=== PATIENT | female | born 1940 ===

== ENCOUNTER 2017-02-21 04:17 | Emergency (ER) | payer MEDICARE, MEDICAID ==
[2017-02-21 04:34] VITALS: RESP 16; O2SAT 99
--- NOTE | 2017-02-21 04:43 | ED PDOC ---
HPI: Psych/Substance Abuse Time Seen by Provider: 02/21/17 04:20 Chief Complaint (Nursing): Anxiety Chief Complaint (Provider): Insomnia History Per: Patient History/Exam Limitations: no limitations Suicide/Self Injury Attempted (Context): None Additional Complaint(s): 76 year old female brought in by family presents to ED with complaints of insomnia and has a past medical history of anxiety and gastritis. Family notes that patient has not been sleeping x3 days due to anxiety. Confirms patient currently takes Lexapro BID. Family also notes patient experiences occasional epigastric pain. Patient denies pain currently. (-) suicidal/homicidal ideation. PCP: Selvin Past Medical History Reviewed: Historical Data, Nursing Documentation, Vital Signs Vital Signs: Last Vital Signs Temp 98.4 F 02/21/17 04:30 Pulse 81 02/21/17 04:30 Resp 16 02/21/17 04:30 BP 147/93 H 02/21/17 04:30 Pulse Ox 99 02/21/17 04:30 - Medical History PMH: Anxiety, Gastritis Denies: No Chronic Diseases - Family History Family History: States: No Known Family Hx - Living Arrangements Living Arrangements: With Family - Home Medications Home Medications: Ambulatory Orders Medication Instructions Recorded Lorazepam [Ativan] 1 mg PO DAILY PRN #12 tablet 02/21/17 - Allergies Allergies/Adverse Reactions: Allergies Allergy/AdvReac Type Severity Reaction Status Date / Time No Known Allergies Allergy Verified 02/21/17 04:30 Review of Systems ROS Statement: Except As Marked, All Systems Reviewed And Found Negative Gastrointestinal: Positive for: Abdominal Pain (epigastric pain) Psych: Positive for: Anxiety, Other ((-) homicidal ideation, (+) insomnia). Negative for: Suicidal ideation Physical Exam - Reviewed Nursing Documentation Reviewed: Yes Vital Signs Reviewed: Yes - Physical Exam Appears: Positive for: Non-toxic, No Acute Distress (anxious appearing) Skin: Positive for: Normal Color, Warm, Dry Eye Exam: Positive for: Normal appearance Neck: Positive for: Normal Respiratory: Positive for: Normal Breath Sounds. Negative for: Respiratory Distress Gastrointestinal/Abdominal: Positive for: Soft. Negative for: Tenderness Back: Positive for: Normal Inspection Neurologic/Psych: Positive for: Alert, Oriented. Negative for: Motor/Sensory Deficits - Laboratory Results Result Diagrams: 02/21/17 05:35 02/21/17 05:35 - ECG O2 Sat by Pulse Oximetry: 99 (RA) Pulse Ox Interpretation: Normal Medical Decision Making Medical Decision Makin Initial impression: anxiety, insomnia Initial plan: * Labs * Lipase * Crisis evaluation * Ativan 2mg PO * Re-evaluation 519 Patient was evaluated by crisis as per Dr. Jaramillo. Diagnosis: anxiety 0642 Patient states she is feeling better and is able to sleep. Labs reviewed: potassium level is slightly low. Advised patient to consume more potassium. Patient is stable for discharge home. Scribe Attestation: Documented by Marilee Li acting as a scribe for Robby Archuleta MD. Scribe Attestation: All medical record entries made by the Scribe were at my direction and personally dictated by me. I have reviewed the chart and agree that the record accurately reflects my personal performance of the history, physical exam, medical decision making, and the department course for this patient. I have also personally directed, reviewed, and agree with the discharge instructions and disposition. Disposition - Clinical Impression Clinical Impression: Anxiety - Patient ED Disposition Is Patient to be Admitted: No - Disposition Referrals: Aj Montalvo MD [Primary Care Provider] - Disposition: Routine/Home Disposition Time: 06:45 Condition: IMPROVED Additional Instructions: Please see your primary doctor and ask if sleeping/anxiety medications are appropriate for you (i.e. ativan, lunesta, ambien). Prescriptions: Lorazepam [Ativan] 1 mg PO DAILY PRN #12 tablet PRN Reason: Anxiety Instructions: Insomnia (ED), Anxiety (ED) Forms: [employer] (Indonesian) Print Language: MONEGASQUE
[2017-02-21 05:40] LABS: BASO % 0.4 % (0.0-2.0); EOS # 0.1 K/uL (0.0-0.7); EOS % 0.9 % (0.0-4.0); HEMATOCRIT 38.2 % (34.0-47.0); LYMPH # 1.3 K/uL (1.0-4.3); LYMPH % 21.6 % (20.0-40.0); MEAN CORPUSCULAR HEMOGLOBIN 29.6 pg (27.0-31.0); MEAN CORPUSCULAR HGB CONC 32.9 g/dL (33.0-37.0); MEAN PLATELET VOLUME 10.1 fl (7.2-11.7); MONO # 0.4 K/uL (0.0-0.8); MONO % 7.6 % (0.0-10.0); NEUT # 4.1 K/uL (1.8-7.0); NEUT % 69.5 % (50.0-75.0); WHITE BLOOD COUNT 5.9 K/uL (4.8-10.8)
[2017-02-21 06:04] LABS: BLOOD UREA NITROGEN 6 mg/dl (7-17); CALCIUM 9.3 mg/dL (8.4-10.2); CARBON DIOXIDE 25 mmol/L (22-30); CHLORIDE 105 mmol/L (98-107); GFR AFRICAN-AMERICAN > 60; GLUCOSE,RANDOM 115 mg/dL (65-105); LIPASE 169 U/L (23-300); POTASSIUM 3.3 MMOL/L (3.6-5.0); SODIUM 140 mmol/l (132-148)
[2017-02-21 09:30] VITALS: BP 139/82; PULSE 76; TEMP 98.1
== END 2017-02-21 09:30 | disposition home or self-care (01) ==
LOC: H.ER 04:17
DX: F41.9 Anxiety disorder, unspecified (principal); G47.00 Insomnia, unspecified

== ENCOUNTER 2017-05-12 01:28 | Observation (INO) | payer MEDICARE, MEDICAID ==
[2017-05-12 02:43] LABS: BASO % 0.6 % (0.0-2.0); EOS # 0.1 K/uL (0.0-0.7); HEMOGLOBIN 11.9 g/dL (12.0-16.0); LYMPH # 1.2 K/uL (1.0-4.3); LYMPH % 20.3 % (20.0-40.0); MEAN CELL VOLUME 91.7 fl (81.0-99.0); MEAN CORPUSCULAR HEMOGLOBIN 29.5 pg (27.0-31.0); MEAN CORPUSCULAR HGB CONC 32.2 g/dL (33.0-37.0); MEAN PLATELET VOLUME 9.2 fl (7.2-11.7); MONO # 0.5 K/uL (0.0-0.8); MONO % 7.8 % (0.0-10.0); NEUT # 4.2 K/uL (1.8-7.0); NEUT % 70.3 % (50.0-75.0); NRBC % 0.1 % (0.0-0.0); RBC 4.04 Mil/uL (3.80-5.20); RED CELL DISTRIBUTION WIDTH 14.1 % (11.5-14.5)
--- NOTE | 2017-05-12 02:50 | ED PDOC ---
HPI: Seizure Time Seen by Provider: 05/12/17 01:37 Chief Complaint (Nursing): Trauma Chief Complaint (Provider): Seizure-Like Activity History Per: Patient, Family Recent Seizure Activity Began: Hours Ago: (x1) Number Of Seizures: One Length Of Seizures (Duration): Minutes (less than 2 minutes) Quality Of Seizure: Generalized Precipitating Factor(s): None Associated Symptoms: denies: Incontinence Of Urine, Incontinence Of Stool Post-ictal Period: Duration In Mins: (x10) Additional Complaint(s): 76 year old female brought in by EMS and accompanied by family presents to ED due to seizure-like activity [employer] and has a past medical history of dementia and anxiety. Family states patient was in good spirits today but heard a thump her room x1 hour [employer]. Daughter states she found the patient on the floor facing up. Notes that patient was tensed and her upper extremities were shaking. Further reports patient was "staring off into space" and sticking out her tongue. Confirms episodes lasted less than 2 minutes. (-) incontinence of stool or urine. Family notes post-ictal period of 10 minutes where patient was confused and unable to recognize family members. Upon ED arrival patient noted feeling better and denies the event happened. Patient believes she has been sleeping all night. PCP: ANTONETTE NIHSS Stroke Scale - Date/Time Evaluation Performed Date Performed: 05/12/17 Time Performed: 01:40 When Was NIHSS Performed: Baseline - How Severe is the Stroke Level of Consciousness: 0=Alert LOC to Questions: 0=Both comments correct LOC to commands: 0=Obeys both correctly Best Gaze: 0=Normal Visual: 0=No visual loss Facial: 0=Normal Motor Arm - Left: 0=No drift Motor Arm - Right: 0=No drift Motor Leg - Left: 0=No drift Motor Leg - Right: 0=No drift Limb Ataxia: 0=Absent Sensory: 0=Normal Best Language: 0=No aphasia Dysarthia: 0=Normal articulation Extinction & Inattention (Neglect): 0=Normal, no object Score: 0 Past Medical History Reviewed: Historical Data, Nursing Documentation, Vital Signs Vital Signs: Last Vital Signs Temp 97.9 F 05/12/17 01:57 Pulse 75 05/12/17 01:42 Resp 16 05/12/17 01:42 BP 139/71 05/12/17 01:42 Pulse Ox 99 05/12/17 03:12 - Medical History PMH: Anxiety, Dementia, Gastritis Denies: Diabetes, Hepatitis, HIV, HTN, Seizures, Sexually Transmitted Disease - Family History Family History: States: No Known Family Hx - Living Arrangements Living Arrangements: With Family - Social History Drugs: Denies - Home Medications Home Medications: Ambulatory Orders Medication Instructions Recorded Memantine [Namenda] 5 mg PO BID 05/12/17 Mirtazapine [Remeron ODT] 15 mg PO HS 05/12/17 Ondansetron HCl [Zofran] 4 mg PO Q6 PRN 05/12/17 Pantoprazole Sodium [Protonix] 40 mg PO DAILY 05/12/17 Saccharomyces Boulardi [Florastor] 250 mg PO DAILY 05/12/17 traZODone [Desyrel] 50 mg PO HS 05/12/17 - Allergies Allergies/Adverse Reactions: Allergies Allergy/AdvReac Type Severity Reaction Status Date / Time No Known Allergies Allergy Verified 05/12/17 01:41 Review of Systems ROS Statement: Except As Marked, All Systems Reviewed And Found Negative Genitourinary Female: Negative for: Incontinence Neurological: Positive for: Other (Seizure-like activity) Physical Exam - Reviewed Nursing Documentation Reviewed: Yes Vital Signs Reviewed: Yes - Physical Exam Appears: Positive for: Non-toxic, No Acute Distress Skin: Positive for: Normal Color, Warm, Dry Eye Exam: Positive for: Normal appearance, EOMI, PERRL ENT: Positive for: Normal ENT Inspection Neck: Positive for: Normal, Painless ROM, Supple Cardiovascular/Chest: Positive for: Regular Rate, Rhythm. Negative for: Murmur Respiratory: Positive for: Normal Breath Sounds. Negative for: Respiratory Distress Gastrointestinal/Abdominal: Positive for: Soft. Negative for: Tenderness Extremity: Positive for: Normal ROM Neurologic/Psych: Positive for: Alert, supervisor functional testing II-XII (intact), Oriented, Cerebellar Tests (intact). Negative for: Motor/Sensory Deficits, Facial Droop - Laboratory Results Result Diagrams: 05/12/17 02:38 05/12/17 02:38 - ECG O2 Sat by Pulse Oximetry: 99 (RA) Pulse Ox Interpretation: Normal Medical Decision Making Medical Decision Makin Initial impression: first time seizure v syncope with seizure-like episode Initial plan: * CT CERVICAL SPINE * CT HEAD * EKG * EtOH serum * Labs * CPK * Lact Acid * Magnesium * CXR * UA 0256 CT HEAD FINDINGS BRAIN: Diffuse, age-related cortical atrophy and ventriculomegaly. No significant acute abnormality identified. No acute hemorrhage seen within the brain. No acute extra-axial fluid collections visualized. No evidence of significant mass effect within the brain. VENTRICLES: See above. BONES/JOINTS: No acute fractures or other acute bony abnormality noted. SOFT TISSUES: No acute abnormality of the visualized soft tissues is seen. SINUSES: Visualized paranasal sinuses appear clear. MASTOID AIR CELLS: Mastoid air cells appear clear. IMPRESSION: - No acute findings seen within the brain. - See above for remaining findings. 3AM No previous seizure-like activity according to family. Will admit for first time seizure v. syncope with tonic clonic features. Scribe Attestation: Documented by Marilee Li acting as a scribe for Robby Archuleta MD. Scribe Attestation: All medical record entries made by the Scribe were at my direction and personally dictated by me. I have reviewed the chart and agree that the record accurately reflects my personal performance of the history, physical exam, medical decision making, and the department course for this patient. I have also personally directed, reviewed, and agree with the discharge instructions and disposition. Disposition - Clinical Impression Clinical Impression: Seizure - Disposition Referrals: Aj Montalvo MD [Primary Care Provider] - Disposition Time: 02:00 Condition: IMPROVED Forms: [employer] (Khmer)
--- NOTE | 2017-05-12 02:56 | CT ---
EXAM: CT Head Without Intravenous Contrast EXAM DATE/TIME: 05/12/2017 2:01 AM CLINICAL HISTORY: 76 years old, female; Signs and symptoms; Other: Seizure; Additional info: 1st time seizure TECHNIQUE: Axial computed tomography images of the head/brain without intravenous contrast. All CT scans at this facility use one or more dose reduction techniques, viz.: automated exposure control; ma/kV adjustment per patient size (including targeted exams where dose is matched to indication; i.e. head); or iterative reconstruction technique. Coronal and sagittal reformatted images were created and reviewed. COMPARISON: No relevant prior studies available. FINDINGS: BRAIN: Diffuse, age-related cortical atrophy and ventriculomegaly. No significant acute abnormality identified. No acute hemorrhage seen within the brain. No acute extra-axial fluid collections visualized. No evidence of significant mass effect within the brain. VENTRICLES: See above. BONES/JOINTS: No acute fractures or other acute bony abnormality noted. SOFT TISSUES: No acute abnormality of the visualized soft tissues is seen. SINUSES: Visualized paranasal sinuses appear clear. MASTOID AIR CELLS: Mastoid air cells appear clear. IMPRESSION: - No acute findings seen within the brain. - See above for remaining findings.
[2017-05-12 03:03] LABS: ALB/GLOB RATIO 1.4 (1.0-2.1); ALBUMIN 4.2 g/dL (3.5-5.0); ALT/SGPT 34 U/L (9-52); AST/SGOT 30 U/L (14-36); BLOOD UREA NITROGEN 11 mg/dl (7-17); CALCIUM 9.2 mg/dL (8.4-10.2); GFR AFRICAN-AMERICAN > 60; GFR NON-AFRICAN AMERICAN > 60; MAGNESIUM 2.4 MG/DL (1.6-2.3)
--- NOTE | 2017-05-12 03:12 | CT ---
EXAM: CT Cervical Spine Without Intravenous Contrast EXAM DATE/TIME: 05/12/2017 2:02 AM CLINICAL HISTORY: 76 years old, female; Injury or trauma; Fall; Initial encounter; Blunt trauma; Additional info: Fall, seizure TECHNIQUE: Axial computed tomography images of the cervical spine without intravenous contrast. All CT scans at this facility use one or more dose reduction techniques, viz.: automated exposure control; ma/kV adjustment per patient size (including targeted exams where dose is matched to indication; i.e. head); or iterative reconstruction technique. Coronal and sagittal reformatted images were created and reviewed. COMPARISON: No relevant prior studies available. FINDINGS: VERTEBRAE: Vertebrae appear demineralized. 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 No acute cervical spine fractures visualized. No significant vertebral subluxation seen on the sagittal reformatted images. No evidence of acute facet dislocation. DISCS/SPINAL CANAL/NEURAL FORAMINA: Smooth widening of the neural foramina at C4-5 bilaterally, greater on the left. No associated lytic bony destruction. Moderate multilevel facet joint degenerative changes. Mild, multilevel degenerative disc disease. SOFT TISSUES: No acute abnormality of the visualized soft tissues is seen. LUNG APICES: No pneumothorax seen. IMPRESSION: - No acute cervical spine fractures identified. - Smooth widening of the neural foramina at C4-5 bilaterally, greater on the left. No lytic bony destruction. Findings are of uncertain etiology, but could be secondary to nerve sheath tumors, such as schwannomas or neurofibromas, perineural root sleeve cysts, and dural ectasia. MRI of the lumbar spine would be helpful for further evaluation. - See above for remaining findings.
[2017-05-12 03:14] LABS: SQUAMOUS EPITHIAL < 1 /hpf (0-5); URINE BACTERIA RARE (<OCC); URINE BILIRUBIN NEGATIVE (NEGATIVE); URINE BLOOD SMALL (NEGATIVE); URINE CLARITY SLIGHTY-CLOUDY (Clear); URINE COLOR YELLOW (YELLOW); URINE GLUCOSE (UA) NEG (Normal); URINE LEUKOCYTE ESTERASE NEG Leu/uL (Negative); URINE NITRATE NEGATIVE (NEGATIVE); URINE PROTEIN NEGATIVE (NEGATIVE); URINE UROBILINOGEN 0.2-1.0 mg/dL (0.2-1.0)
[2017-05-12] MEDS ORDERED: Divalproex 250 mg DR(BID formulation) PO STA (06:38)
[2017-05-12] MEDS ORDERED: Divalproex 250 mg DR(BID formulation) PO SCH (09:00)
--- NOTE | 2017-05-12 10:40 | MRI ---
PROCEDURE: MRI BRAIN WITHOUT CONTRAST HISTORY: 1st time seizure COMPARISON: None. TECHNIQUE: Multiplanar, multisequence MR images of the brain were obtained without intravenous contrast enhancement. FINDINGS: HEMORRHAGE: None DWI: No evidence of an acute or early subacute infarction. BRAIN PARENCHYMA: No mass effect or edema. Moderate microvascular changes are seen in the deep white matter. Coronal imaging through the temporal lobes shows mild to moderate bilateral atrophy but no focal signal abnormality VENTRICLES: Unremarkable. No hydrocephalus. CRANIUM: Unremarkable. ORBITS: Grossly unremarkable. PARANASAL SINUSES/MASTOIDS: Clear VASCULAR SYSTEM: Skull base flow voids intact. OTHER FINDINGS: None. IMPRESSION: Moderate microvascular changes. Mild atrophy. No acute intracranial findings. No evidence of neoplasm
--- NOTE | 2017-05-12 12:06 | RAD ---
PROCEDURE: CHEST RADIOGRAPH, 1 VIEW HISTORY: 1st time seizure COMPARISON: No prior. FINDINGS: LUNGS: Clear. PLEURA: No pneumothorax or pleural fluid seen. CARDIOVASCULAR: Aortic tortuosity. Cardiomediastinal silhouette within normal limits. OSSEOUS STRUCTURES: Scoliosis. Degenerative changes. VISUALIZED UPPER ABDOMEN: Normal. OTHER FINDINGS: None. IMPRESSION: No active disease.
--- NOTE | 2017-05-12 12:11 | CP.PCM.CON ---
History of Present Illness - History of Present Illness History of Present Illness: 76 yr old woman who was found by daughter on the ground last night, s/p fall. There was no urinary or fecal incontinence, no tongue bite. CT head was normal is the ER, and her vital signs have been stable. She was started on depakote as a preliminary treatment. EEG is pending. On my exam, patient is fluent in indian, and conversing appropriately. She is, however, extremely anxious. There is no headache, no weakness, no aphasia, no dysarthria, no dizziness, no confusion. PMH/PSH: NO dm, no history of epilepsy FH/SH: Has several children. no tobacco, no etoh. All: nkda. Findings: MRI C spine: Vertebrae appear demineralized. 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 No acute cervical spine fractures visualized. No significant vertebral subluxation seen on the sagittal reformatted images. No evidence of acute facet dislocation. DISCS/SPINAL CANAL/NEURAL FORAMINA: Smooth widening of the neural foramina at C4 -5 bilaterally, greater on the left. No associated lytic bony destruction. Moderate multilevel facet joint degenerative changes. Mild, multilevel degenerative disc disease. SOFT TISSUES: No acute abnormality of the visualized soft tissues is seen. LUNG APICES: No pneumothorax seen. On exam: AAOX3. Pupils 3mm-2mm with light. EOMI. CN 2-12 normal. Motor: strength : 5/5 ul and ll bl. Toes downgoing. NO clonus. Sensory: intact to ft, pin, position. Gait: normal, turns well. THere is no indication for Parkinsons Disease. +2dtr ul and ll bl. Toes downgoing. NO clonus. NO rhomberg. Past Patient History - Past Social History Smoking Status: Unknown If Ever Smoked - CARDIAC Hx Cardiac Disorders: No - PULMONARY Hx Tuberculosis: No - NEUROLOGICAL Hx Dementia: Yes Hx Seizures: No - HEMATOLOGICAL/ONCOLOGICAL Hx Human Immunodeficiency Virus (HIV): No - GASTROINTESTINAL Hx Gastritis: Yes - GENITOURINARY/GYNECOLOGICAL Hx Sexually Transmitted Disorders: No - PSYCHIATRIC Hx Anxiety: Yes Hx Substance Use: No Other/Comment: dementia - SURGICAL HISTORY Hx Surgeries: No - ANESTHESIA Hx Anesthesia: No Meds Allergies/Adverse Reactions: Allergies Allergy/AdvReac Type Severity Reaction Status Date / Time No Known Allergies Allergy Verified 05/12/17 01:41 - Medications Medications: Current Medications Divalproex Sodium (Depakote Dr(*Bid*)) 250 mg PO BID [facility] Last Admin: 05/12/17 08:33 Dose: 250 mg Memantine (Namenda) 5 mg PO BID [facility] Ondansetron HCl (Zofran Inj) 4 mg IVP Q6 PRN PRN Reason: Nausea/Vomiting Results - Vital Signs Recent Vital Signs: Last Vital Signs Temp 98.0 F 05/12/17 03:42 Pulse 80 05/12/17 10:53 Resp 20 05/12/17 10:53 BP 133/62 05/12/17 10:53 Pulse Ox 100 05/12/17 10:53 - Labs Result Diagrams: 05/12/17 02:38 05/12/17 02:38 Labs: Laboratory Results - last 24 hr 05/12/17 05/12/17 05/12/17 01:55 02:38 02:38 WBC 6.0 RBC 4.04 Hgb 11.9 L Hct 37.0 MCV 91.7 MCH 29.5 MCHC 32.2 L RDW 14.1 Plt Count 199 MPV 9.2 Neut % (Auto) 70.3 Lymph % (Auto) 20.3 Bertie % (Auto) 7.8 Eos % (Auto) 1.0 Baso % (Auto) 0.6 Neut # (Auto) 4.2 Lymph # (Auto) 1.2 Bertie # (Auto) 0.5 Eos # (Auto) 0.1 Baso # (Auto) 0.0 Sodium 141 Potassium 4.1 Chloride 103 Carbon Dioxide 28 Anion Gap 14 BUN 11 Creatinine 0.8 Est GFR ( Amer) > 60 Est GFR (Non-Af Amer) > 60 POC Glucose (mg/dL) 108 Random Glucose 120 H Lactic Acid Calcium 9.2 Magnesium 2.4 H Total Bilirubin 0.8 AST 30 ALT 34 Alkaline Phosphatase 83 Total Creatine Kinase 175 H Total Protein 7.2 Albumin 4.2 Globulin 3.0 Albumin/Globulin Ratio 1.4 Urine Color Urine Clarity Urine pH Ur Specific [place]xton Urine Protein Urine Glucose (UA) Urine Ketones Urine Blood Urine Nitrate Urine Bilirubin Urine Urobilinogen Ur Leukocyte Esterase Urine RBC (Auto) Urine Microscopic WBC Ur Squamous Epith Cells Urine Bacteria Alcohol, Quantitative < 10 05/12/17 05/12/17 02:38 03:05 WBC RBC Hgb Hct MCV MCH MCHC RDW Plt Count MPV Neut % (Auto) Lymph % (Auto) Bertie % (Auto) Eos % (Auto) Baso % (Auto) Neut # (Auto) Lymph # (Auto) Bertie # (Auto) Eos # (Auto) Baso # (Auto) Sodium Potassium Chloride Carbon Dioxide Anion Gap BUN Creatinine Est GFR ( Amer) Est GFR (Non-Af Amer) POC Glucose (mg/dL) Random Glucose Lactic Acid 1.4 Calcium Magnesium Total Bilirubin AST ALT Alkaline Phosphatase Total Creatine Kinase Total Protein Albumin Globulin Albumin/Globulin Ratio Urine Color Yellow Urine Clarity Slighty-cloudy Urine pH 6.0 Ur Specific [place] 1.016 Urine Protein Negative Urine Glucose (UA) Neg Urine Ketones Negative Urine Blood Small Urine Nitrate Negative Urine Bilirubin Negative Urine Urobilinogen 0.2-1.0 Ur Leukocyte Esterase Neg Urine RBC (Auto) 5 H Urine Microscopic WBC 2 Ur Squamous Epith Cells < 1 Urine Bacteria Rare Alcohol, Quantitative - Imaging and Cardiology CT scan - head Status: Image reviewed by me, Report reviewed by me (CT head normal. NO strokes no hemorrhage. ) Assessment & Plan - Assessment and Plan (Free Text) Assessment: 76 yr old woman who most likely had a syncopal spell. I will discontinue the depakote, and order EEG. MRI brain is pending, but can be done on an outpatient basis. Plan: 1. EEG 2. MRI Brain.
--- NOTE | 2017-05-12 12:26 | CARD ---
APPROVED REPORT EKG Measurement Heart [id number] <Conclusion> Normal sinus rhythm Nonspecific T wave abnormality Abnormal ECG
[2017-05-12] MEDS: Saccharomyces Boulardi 250 mg Cap PO SCH (14:00)
[2017-05-12] MEDS: Pantoprazole 40 mg EC Tab PO SCH (14:00)
--- NOTE | 2017-05-12 17:26 | CP.PCM.CON ---
History of Present Illness - History of Present Illness History of Present Illness: 76 y/o active female who had syncopal episode overnight which was witnessed by family. pt does not remember waking from sleep. Apparently she took her sleeping pills and went to bed at 11pm. 1230am she stood up out of bed and had syncope. no urine incontinence, no tremors, no head trauma. this is the first episode. pt was mildly lethargic after episode however she recovered in 10-15 min. pt admits to feeling thirsty over past 2 weeks. note she was recently (2 weeks ago) changed to mirtazipine and trazadone. she was taking lorazepam 1mg and escitalopram 10 mg for 2 years. pt denies cp, palp, sob, orthopnea, pnd, maranda, lightheadedness, dizziness, fatigue, blurry vision. Review of Systems - Constitutional Constitutional: As Per HPI. absent: Anorexia, Chills, Daytime Sleepiness, Excessive Sweating, Fatigue, Fever, Frequent Falls, Headache, Increased Appetite , Lethargy, Malaise, Night Sweats, Snoring, Sleep Apnea, Weight Gain, Weight Loss, Weakness, Other - EENT Eyes: As Per HPI. absent: Blind Spots, Blurred Vision, Change in Vision, Decreased Night Vision, Diplopia, Discharge, Dry Eye, Exophthalmos, Floaters, Irritation, Itchy Eyes, Loss of Peripheral Vision, Pain, Photophobia, Requires Corrective Lenses, Sees Flashes, Spots in Vision, Tunnel Vision, Other Visual Disturbances, Loss of Vision, Other Ears: As Per HPI. absent: Decreased Hearing, Ear Discharge, Ear Pain, Tinnitus , Abnormal Hearing, Disequilibrium, Dizziness, Other Nose/Mouth/Throat: As Per HPI, Dry Mouth. absent: Epistaxis, Nasal Congestion, Nasal Discharge, Nasal Obstruction, Nasal Trauma, Nose Pain, Post Nasal Drip, Sinus Pain, Sinus Pressure, Bleeding Gums, Change in Voice, Dental Pain, Dysphagia, Halitosis, Hoarsness, Lip Swelling, Mouth Lesions, Mouth Pain, Odynophagia, Sore Throat, Throat Swelling, Tongue Swelling, Facial Pain, Neck Pain, Neck Mass, Other - Breasts Breasts: As Per HPI. absent: Change in Shape, Mass, Pain, Nipple Discharge, Nipple Inversion, Skin Changes, Swelling, Other - Cardiovascular Cardiovascular: As Per HPI, Syncope. absent: Acrocyanosis, Chest Pain, Chest Pain at Rest, Chest Pain with Activity, Claudication, Diaphoresis, Dyspnea, Dyspnea on Exertion, Edema, Irregular Heart Rhythm, Pain Radiating to Arm/Neck/ Jaw, Leg Edema, Leg Ulcers, Lightheadedness, Orthopnea, Palpitations, Paroxysmal Nocturnal Dyspnea, Pedal Edema, Radiating Pain, Rapid Heart Rate, Slow Heart Rate, Other - Respiratory Respiratory: As Per HPI. absent: Cough, Dyspnea, Hemoptysis, Dyspnea on Exertion, Wheezing, Snoring, Stridor, Pain on Inspiration, Chest Congestion, Excessive Mucous Production, Change in Mucous Color, Pain with Coughing, Other - Gastrointestinal Gastrointestinal: As Per HPI. absent: Abdominal Pain, Belching, Bloating, Change in Bowel Habits, Change in Stool Character, Coffee Ground Emesis, Constipation, Cramping, Diarrhea, Dyspepsia, Dysphagia, Early Satiety, Excessive Flatus, Fecal Incontinence, Heartburn, Hematemesis, Hematochezia, Loose Stools, Melena, Nausea, Odynophagia, Temesmus, Vomiting, Other - Genitourinary Genitourinary: As Per HPI. absent: Change in Urinary Stream, Difficulty Urinating, Dysuria, Flank Pain, Hematuria, Pyuria, Nocturia, Urinary Incontinence, Urinary Frequency, Urinary Hesitance, Urinary Urgency, Voiding Freq/Small Amts, Freq UTI, Hx Renal/Bladder Calculi, Hx /Renal Surgery, Bladder Distension, Other - Reproductive: Female Reproductive:Female: As Per HPI. absent: Amenorrhea, Amenorrhea/ Control, Currently Menstual, Cycle <21 Days, Cycle >35 Days, Cycle Variable, Menses 1-7 Days, Menses >/= 8 Days, Menses Variable, Cycle > 4 Weeks Between, No Menses for 6 Months, Heavy Menses, Light Menses, Normal Menses, Spotting Between Cycles , S/P Hysterectomy, Menopausal, Post Menopausal, Premenarche, Abnormal Vaginal Bleeding, Dysmenorrhea, Dyspareunia, Genital Lesions, Genital Pruritis, Pelvic Pain, Prolapse Symptoms, Sexual Dysfunction, Vaginal Discharge, Vaginal Dryness , Vaginal Odor, Vaginal Pruritis, Other - Musculoskeletal Musculoskeletal: As Per HPI. absent: Abnormal Gait, Arthralgias, Atrophy, Back Pain, Deformity, Joint Swelling, Limited Range of Motion, Loss of Height, Muscle Cramps, Muscle Weakness, Myalgias, Neck Pain, Numbness, Radiating Pain into Limb, Stiffness, Tingling, Other - Integumentary Integumentary: As Per HPI. absent: Acne, Alopecia, Bleeding Lesions, Change in Hair, Change in Nails, Change in Pigmentation, Changing Lesions, Dry Skin, Erythema, Furuncle, Hirsutism, Lesions, New Lesions, Non-Healing Lesions, Photosensitivity, Pruritus, Rash, Skin Pain, Skin Ulcer, Sores, Striae, Swelling , Unusual Bruising, Wounds, Jaundice, Other - Neurological Neurological: As Per HPI, Syncope. absent: Abnormal Gait, Abnormal Hearing, Abnormal Movements, Abnormal Speech, Behavioral Changes, Burning Sensations, Confusion, Convulsions, Disequilibrium, Dizziness, Numbness, Focal Weakness, Frequent Falls, Headaches, Lack of Coordination, Loss of Vision, Memory Loss, Paresthesias, Radicular Pain, Restless Legs, Sensory Deficit, Tingling, Tremor, Vertigo, Weakness, Other Visual Disturbances, Other - Psychiatric Psychiatric: As Per HPI, Anxiety, Depression. absent: Abnormal Sleep Pattern, Anhedonia, Auditory Hallucinations, Behavioral Changes, Change in Appetite, Change in Libido, Confusion, Difficulty Concentrating, Hallucinations, Homicidal Ideation, Hopelessness, Irritability, Memory Loss, Mood Swings, Panic Attacks, Paranoia, Suicidal Ideation, Visual Hallucinations, Tactile Hallucinations, Other - Endocrine Endocrine: As Per HPI. absent: Change in Body Appearance, Change in Libido, Cold Intolorance, Deepening of Voice, Excessive Sweating, Fatigue, Flushing, Heat Intolorance, Increase in Ring/Shoe/Hat Size, Palpitations, Polydipsia, Polyphagia, Polyuria, Other - Hematologic/Lymphatic Hematologic: As Per HPI. absent: Easy Bleeding, Easy Bruising, Lymphadenopathy , Other Past Patient History - Past Medical History & Family History Past Medical History?: Yes - Past Social History Smoking Status: Never Smoked Chewing Tobacco Use: No Cigar Use: No Alcohol: None Drugs: Denies Home Situation {Lives}: With Family Domestic Violence: Negative - CARDIAC Hx Cardiac Disorders: No - PULMONARY Hx Tuberculosis: No - NEUROLOGICAL Hx Dementia: Yes Hx Seizures: No - RENAL Hx Chronic Kidney Disease: No - ENDOCRINE/METABOLIC Hx Endocrine Disorders: No - HEMATOLOGICAL/ONCOLOGICAL Hx Blood Disorders: No Hx AIDS: No Hx Human Immunodeficiency Virus (HIV): No - INTEGUMENTARY Hx Dermatological Problems: No - MUSCULOSKELETAL/RHEUMATOLOGICAL Hx Musculoskeletal Disorders: No Hx Falls: Yes - GASTROINTESTINAL Hx Gastritis: Yes - GENITOURINARY/GYNECOLOGICAL Hx Genitourinary Disorders: No Hx Sexually Transmitted Disorders: No - PSYCHIATRIC Hx Anxiety: Yes Hx Depression: Yes Hx Substance Use: No Other/Comment: dementia - SURGICAL HISTORY Hx Surgeries: No - ANESTHESIA Hx Anesthesia: No Meds Allergies/Adverse Reactions: Allergies Allergy/AdvReac Type Severity Reaction Status Date / Time No Known Allergies Allergy Verified 05/12/17 01:41 - Medications Medications: Current Medications Memantine (Namenda) 5 mg PO BID [facility] Ondansetron HCl (Zofran Inj) 4 mg IVP Q6 PRN PRN Reason: Nausea/Vomiting Pantoprazole Sodium (Protonix Ec Tab) 40 mg PO DAILY [facility] Last Admin: 05/12/17 14:00 Dose: 40 mg Saccharomyces Boulardii (Florastor) 250 mg PO DAILY [facility] Last Admin: 05/12/17 14:00 Dose: 250 mg Physical Exam - Constitutional Appears: Well, No Acute Distress - Head Exam Head Exam: ATRAUMATIC, NORMAL INSPECTION, NORMOCEPHALIC - Eye Exam Eye Exam: EOMI, Normal appearance, PERRL. absent: Conjunctival injection, Nystagmus, Periorbital swelling, Periorbital tenderness, Scleral icterus Pupil Exam: NORMAL ACCOMODATION, PERRL. absent: Fixed, Irregular, Miosis, Mydriatic, Unequal - ENT Exam ENT Exam: Mucous Membranes Dry. absent: Mucous Membranes Moist, Normal Exam, Normal External Ear Exam, Normal Oropharynx, TM's Normal Bilaterally - Neck Exam Neck exam: Positive for: Normal Inspection. Negative for: Full Rom, Lymphadenopathy, Meningismus, Tenderness, Thyromegaly - Respiratory Exam Respiratory Exam: Clear to Auscultation Bilateral, NORMAL BREATHING PATTERN. absent: Accessory Muscle Use, Chest Wall Tenderness, Decreased Breath Sounds, Prolonged Expiratory Phase, Rales, Rhonchi, Wheezes, Respiratory Distress, Stridor - Cardiovascular Exam Cardiovascular Exam: REGULAR RHYTHM, +S1, +S2, Systolic Murmur. absent: Bradycardia, Tachycardia, Clicks, Diastolic murmur, Gallop, Irregular Rhythm, JVD, RRR, Rubs, +S4 - GI/Abdominal Exam GI & Abdominal Exam: Normal Bowel Sounds, Soft. absent: Bruit, Diminished Bowel Sounds, Distended, Firm, Guarding, Hernia, Hyperactive Bowel Sounds, Hypoactive Bowel Sounds, Mass, Organomegaly, Pulsatile Mass, Rebound, Rigid, Tenderness - Rectal Exam Rectal Exam: Deferred - Extremities Exam Extremities exam: Positive for: pedal edema. Negative for: calf tenderness, full ROM, joint swelling, normal capillary refill, normal inspection, tenderness , pedal pulses present - Back Exam Back exam: NORMAL INSPECTION. absent: CVA tenderness (L), CVA tenderness (R), FULL ROM, muscle spasm, paraspinal tenderness, rash noted, tenderness, vertebral tenderness - Neurological Exam Neurological exam: Alert, CN II-XII Intact, Normal Gait, Oriented x3, Reflexes Normal - Psychiatric Exam Psychiatric exam: Normal Affect, Normal Mood - Skin Skin Exam: Dry, Intact, Normal Color, Warm - Additional Findings Additional findings: laying and standing bp's performed. laying systolic was 158/80, standing was 108/66. Results - Vital Signs Recent Vital Signs: Last Vital Signs Temp 98.3 F 05/12/17 15:49 Pulse 84 05/12/17 15:49 Resp 20 05/12/17 15:49 BP 132/82 05/12/17 15:49 Pulse Ox 98 05/12/17 15:49 - Labs Result Diagrams: 05/12/17 02:38 05/12/17 02:38 Labs: Laboratory Results - last 24 hr 05/12/17 05/12/17 05/12/17 01:55 02:38 02:38 WBC 6.0 RBC 4.04 Hgb 11.9 L Hct 37.0 MCV 91.7 MCH 29.5 MCHC 32.2 L RDW 14.1 Plt Count 199 MPV 9.2 Neut % (Auto) 70.3 Lymph % (Auto) 20.3 [place] % (Auto) 7.8 Eos % (Auto) 1.0 Baso % (Auto) 0.6 Neut # (Auto) 4.2 Lymph # (Auto) 1.2 [place] # (Auto) 0.5 Eos # (Auto) 0.1 Baso # (Auto) 0.0 Sodium 141 Potassium 4.1 Chloride 103 Carbon Dioxide 28 Anion Gap 14 BUN 11 Creatinine 0.8 Est GFR ( Amer) > 60 Est GFR (Non-Af Amer) > 60 POC Glucose (mg/dL) 108 Random Glucose 120 H Lactic Acid Calcium 9.2 Magnesium 2.4 H Total Bilirubin 0.8 AST 30 ALT 34 Alkaline Phosphatase 83 Total Creatine Kinase 175 H Total Protein 7.2 Albumin 4.2 Globulin 3.0 Albumin/Globulin Ratio 1.4 Urine Color Urine Clarity Urine pH Ur Specific [place] Urine Protein Urine Glucose (UA) Urine Ketones Urine Blood Urine Nitrate Urine Bilirubin Urine Urobilinogen Ur Leukocyte Esterase Urine RBC (Auto) Urine Microscopic WBC Ur Squamous Epith Cells Urine Bacteria Alcohol, Quantitative < 10 05/12/17 05/12/17 02:38 03:05 WBC RBC Hgb Hct MCV MCH MCHC RDW Plt Count MPV Neut % (Auto) Lymph % (Auto) [place] % (Auto) Eos % (Auto) Baso % (Auto) Neut # (Auto) Lymph # (Auto) [place] # (Auto) Eos # (Auto) Baso # (Auto) Sodium Potassium Chloride Carbon Dioxide Anion Gap BUN Creatinine Est GFR ( Amer) Est GFR (Non-Af Amer) POC Glucose (mg/dL) Random Glucose Lactic Acid 1.4 Calcium Magnesium Total Bilirubin AST ALT Alkaline Phosphatase Total Creatine Kinase Total Protein Albumin Globulin Albumin/Globulin Ratio Urine Color Yellow Urine Clarity Slighty-cloudy Urine pH 6.0 Ur Specific [place] 1.016 Urine Protein Negative Urine Glucose (UA) Neg Urine Ketones Negative Urine Blood Small Urine Nitrate Negative Urine Bilirubin Negative Urine Urobilinogen 0.2-1.0 Ur Leukocyte Esterase Neg Urine RBC (Auto) 5 H Urine Microscopic WBC 2 Ur Squamous Epith Cells < 1 Urine Bacteria Rare Alcohol, Quantitative - EKG Data EKG Interpreted by: Myself EKG shows normal: Sinus rhythm Rate: Normal Assessment & Plan (1) Syncope due to orthostatic hypotension Status: Acute (2) Anxiety Status: Acute - Assessment and Plan (Free Text) Plan: SUGGEST STOPPING MIRTAZIPINE AND TRAZADONE. NS AT [facility] IN AM MONITOR ON TELE ECHO IMAGES REVIEWED, NO SIGNIFICANT STRUCTURAL ABN. NML EF. NO ARRYTHMIA ON TELE 75 MIN TOTAL CARE TIME
[2017-05-12] MEDS: Sodium Chloride 0.9% 1,000 ML IV SCH (20:35)
--- NOTE | 2017-05-13 00:13 | CP.PCM.HP ---
Past Patient History - Past Medical History & Family History Past Medical History?: Yes - Past Social History Smoking Status: Never Smoked Chewing Tobacco Use: No Cigar Use: No Alcohol: None Drugs: Denies Home Situation {Lives}: With Family Domestic Violence: Negative - CARDIAC Hx Cardiac Disorders: No - PULMONARY Hx Tuberculosis: No - NEUROLOGICAL Hx Dementia: Yes Hx Seizures: No - RENAL Hx Chronic Kidney Disease: No - ENDOCRINE/METABOLIC Hx Endocrine Disorders: No - HEMATOLOGICAL/ONCOLOGICAL Hx Blood Disorders: No Hx AIDS: No Hx Human Immunodeficiency Virus (HIV): No - INTEGUMENTARY Hx Dermatological Problems: No - MUSCULOSKELETAL/RHEUMATOLOGICAL Hx Musculoskeletal Disorders: No Hx Falls: Yes - GASTROINTESTINAL Hx Gastritis: Yes - GENITOURINARY/GYNECOLOGICAL Hx Genitourinary Disorders: No Hx Sexually Transmitted Disorders: No - PSYCHIATRIC Hx Anxiety: Yes Hx Depression: Yes Hx Substance Use: No Other/Comment: dementia - SURGICAL HISTORY Hx Surgeries: No - ANESTHESIA Hx Anesthesia: No Meds Allergies/Adverse Reactions: Allergies Allergy/AdvReac Type Severity Reaction Status Date / Time No Known Allergies Allergy Verified 05/12/17 01:41 Results - Vital Signs Recent Vital Signs: Last Vital Signs Temp 99.2 F 05/12/17 19:22 Pulse 82 05/12/17 19:22 Resp 20 05/12/17 19:22 BP 131/77 05/12/17 19:22 Pulse Ox 98 05/12/17 19:22 - Labs Result Diagrams: 05/12/17 02:38 05/12/17 02:38 Labs: Laboratory Results - last 24 hr 05/12/17 05/12/17 05/12/17 01:55 02:38 02:38 WBC 6.0 RBC 4.04 Hgb 11.9 L Hct 37.0 MCV 91.7 MCH 29.5 MCHC 32.2 L RDW 14.1 Plt Count 199 MPV 9.2 Neut % (Auto) 70.3 Lymph % (Auto) 20.3 [place] % (Auto) 7.8 Eos % (Auto) 1.0 Baso % (Auto) 0.6 Neut # (Auto) 4.2 Lymph # (Auto) 1.2 [place] # (Auto) 0.5 Eos # (Auto) 0.1 Baso # (Auto) 0.0 Sodium 141 Potassium 4.1 Chloride 103 Carbon Dioxide 28 Anion Gap 14 BUN 11 Creatinine 0.8 Est GFR ( Amer) > 60 Est GFR (Non-Af Amer) > 60 POC Glucose (mg/dL) 108 Random Glucose 120 H Lactic Acid Calcium 9.2 Magnesium 2.4 H Total Bilirubin 0.8 AST 30 ALT 34 Alkaline Phosphatase 83 Total Creatine Kinase 175 H Total Protein 7.2 Albumin 4.2 Globulin 3.0 Albumin/Globulin Ratio 1.4 Urine Color Urine Clarity Urine pH Ur Specific [place] Urine Protein Urine Glucose (UA) Urine Ketones Urine Blood Urine Nitrate Urine Bilirubin Urine Urobilinogen Ur Leukocyte Esterase Urine RBC (Auto) Urine Microscopic WBC Ur Squamous Epith Cells Urine Bacteria Alcohol, Quantitative < 10 05/12/17 05/12/17 02:38 03:05 WBC RBC Hgb Hct MCV MCH MCHC RDW Plt Count MPV Neut % (Auto) Lymph % (Auto) [place] % (Auto) Eos % (Auto) Baso % (Auto) Neut # (Auto) Lymph # (Auto) [place] # (Auto) Eos # (Auto) Baso # (Auto) Sodium Potassium Chloride Carbon Dioxide Anion Gap BUN Creatinine Est GFR ( Amer) Est GFR (Non-Af Amer) POC Glucose (mg/dL) Random Glucose Lactic Acid 1.4 Calcium Magnesium Total Bilirubin AST ALT Alkaline Phosphatase Total Creatine Kinase Total Protein Albumin Globulin Albumin/Globulin Ratio Urine Color Yellow Urine Clarity Slighty-cloudy Urine pH 6.0 Ur Specific [place] 1.016 Urine Protein Negative Urine Glucose (UA) Neg Urine Ketones Negative Urine Blood Small Urine Nitrate Negative Urine Bilirubin Negative Urine Urobilinogen 0.2-1.0 Ur Leukocyte Esterase Neg Urine RBC (Auto) 5 H Urine Microscopic WBC 2 Ur Squamous Epith Cells < 1 Urine Bacteria Rare Alcohol, Quantitative
[2017-05-13] MEDS: Sodium Chloride 0.9% 1,000 ML IV SCH (08:58)
[2017-05-13] MEDS: Saccharomyces Boulardi 250 mg Cap PO SCH (09:01)
[2017-05-13] MEDS: Pantoprazole 40 mg EC Tab PO SCH (09:01)
--- NOTE | 2017-05-13 09:36 | EEG ---
ELECTROENCEPHALOGRAM REPORT DATE: 05/12/2017 TECHNICAL INFORMATION: Electrodes were placed according to the 10-20 [employer] electrode system by radiologic technologist chief. Total of 23 electrodes (21 EEG and 2 EKG) were placed. EEG activity was digitally recorded referentially to P1/P2 or A1/A2 electrodes. Continuous monitoring with EEG was performed using digital analysis for spike detection. The [employer] spike and seizure detection algorithms were used for digital EEG analysis throughout the monitoring period to screen the EEG in real-time and lelo the data file with pointers to electrographic seizures and interictal discharges. EEG was screened for electrographic seizures and interictal discharges by a technologist. Physician, epileptologist reviewed detections as well as extensive random samples and whole EEG study in detail. Digital EEG analysis was carried out including FFT (Fast Fourier Transform), R2D2 (Rhythmicity Run Detection and Display), Relative Asymmetry Spectrogram, and voltage plot by the [email or web address] Software. The qualitative EEG analysis and the voltage plot mapping were used for detection of foci of paroxysmal and abnormal electrical cortical activity. GENERAL DESCRIPTION: Background Rhythm: There is a well-formed, 8-10 Hz posterior dominant rhythm that is reactive, symmetric, and attenuates with eye opening. There was a normal amount of frontal beta noted bilaterally. There is no sleep recorded. ACTIVATION PROCEDURES: Photic stimulation, there is no driving noted. Hyperventilation, there is slowing noted that is self-remitted. ABNORMAL ACTIVITY: There are no focal epileptiform discharges noted. No clinical or subclinical seizures noted. IMPRESSION: This is a normal awake and drowsy EEG. There is a normal intermittent generalized slowing. Clinical correlation is required. Arnie Pacheco MD
--- NOTE | 2017-05-13 10:03 | US ---
PROCEDURE: Duplex ultrasound of the carotid and vertebral arteries. HISTORY: syncope COMPARISON: None available. TECHNIQUE: Grayscale and duplex Doppler evaluation of the cervical carotid and vertebral arteries were performed. The common carotid, carotid bifurcations and cervical ICA and proximal ECA were evaluated. The vertebral arteries were evaluated for gross patency and direction. FINDINGS: RIGHT CAROTID ARTERIES: Common Carotid Artery: Normal. Maximal flow velocity of 82.3 cm/s. Carotid Bifurcation: Normal. Internal Carotid Artery:Normal. Maximal flow velocity of 90.0 cm/s. External Carotid Artery (proximal branches): Normal. Maximal flow velocity of 95.5 cm/s. ICA/CCA Ratio: 1.2 LEFT CAROTID ARTERIES: Common Carotid Artery: Normal. Maximal flow velocity of 117.7 cm/s. Carotid Bifurcation: Normal. Internal Carotid Artery:Normal. Maximal flow velocity of 89.2 cm/s. External Carotid Artery (proximal branches): Normal. Maximal flow velocity of 91.8 cm/s. ICA/CCA Ratio: 0.9 VERTEBRAL ARTERIES: Right Vertebral Artery: Patent. Antegrade flow. Left Vertebral Artery: Patent. Antegrade flow. OTHER FINDINGS: None. IMPRESSION: Normal Duplex Doppler of the cervical carotid and vertebral arteries.
--- NOTE | 2017-05-13 10:58 | CP.PCM.PN ---
Subjective - Date & Time of Evaluation Date of Evaluation: 05/13/17 Time of Evaluation: 10:55 - Subjective Subjective: Ms. Isidro was seen and examined at the bedside. She is alert, oriented. She denies any headache, dizziness, lightheadedness, nausea, or vomiting. She is able to follow simple commands. MRI of the brain showed mild atrophy. moderate microangiopathic changes. no acute intracranial hemorrhage or findings or neoplasm.There was no untoward events overnight. Objective - Vital Signs/Intake and Output Vital Signs (last 24 hours): Temp Pulse Resp BP Pulse Ox 98.3 F 60 20 122/67 98 05/13/17 08:00 05/13/17 08:00 05/13/17 08:00 05/13/17 08:00 05/13/17 08:00 - Medications Medications: Current Medications Sodium Chloride (Sodium Chloride 0.9%) 1,000 mls @ 75 mls/hr IV .[id number] [facility] Stop: 05/13/17 18:16 Last Admin: 05/13/17 08:58 Dose: 75 mls/hr Lorazepam (Ativan) 1 mg PO HS PRN PRN Reason: Insomnia Memantine (Namenda) 5 mg PO BID [facility] Last Admin: 05/13/17 09:01 Dose: 5 mg Ondansetron HCl (Zofran Inj) 4 mg IVP Q6 PRN PRN Reason: Nausea/Vomiting Last Admin: 05/13/17 08:58 Dose: 4 mg Pantoprazole Sodium (Protonix Ec Tab) 40 mg PO DAILY [facility] Last Admin: 05/13/17 09:01 Dose: 40 mg Saccharomyces Boulardii (Florastor) 250 mg PO DAILY [facility] Last Admin: 05/13/17 09:01 Dose: 250 mg - Labs Labs: 05/12/17 02:38 05/12/17 02:38 - Constitutional Appears: No Acute Distress - Head Exam Head Exam: NORMAL INSPECTION - Neurological Exam Neurological Exam: Alert, Awake, CN II-XII Intact, Oriented x3 Neuro motor strength exam: Left Upper Extremity: 5, Right Upper Extremity: 5, Left Lower Extremity: 5, Right Lower Extremity: 5 Additional comments: She is able to answer questions and follow simple commands. Sensation remains intact. Assessment and Plan (1) Syncope due to orthostatic hypotension Assessment & Plan: Case discussed with Dr. Pacheco, continue all current medical, physical, and occupational therapies. Pending EEG result. Recommend normotension. Status: Acute
[2017-05-13 16:28] VITALS: BP 126/70; PULSE 62; RESP 14; TEMP 98.3
[2017-05-13 16:32] VITALS: O2SAT 96
--- NOTE | 2017-05-15 00:32 | CP.PCM.DIS ---
Provider - Provider Date of Admission: 05/12/17 02:39 Attending physician: Cristine Muñoz MD Primary care physician: Aj Montalvo MD Time Spent in preparation of Discharge (in minutes): 25 Hospital Course - Lab Results Lab Results: Micro Results 05/12/17 03:00 Urine,Clean Catch Urine Culture - Final No Growth (<1,000 CFU/ML) Most Recent Lab Values WBC 6.0 K/uL (4.8-10.8) 05/12/17 02:38 RBC 4.04 Mil/uL (3.80-5.20) 05/12/17 02:38 Hgb 11.9 g/dL (12.0-16.0) L 05/12/17 02:38 Hct 37.0 % (34.0-47.0) 05/12/17 02:38 MCV 91.7 fl (81.0-99.0) 05/12/17 02:38 MCH 29.5 pg (27.0-31.0) 05/12/17 02:38 MCHC 32.2 g/dL (33.0-37.0) L 05/12/17 02:38 RDW 14.1 % (11.5-14.5) 05/12/17 02:38 Plt Count 199 K/uL (130-400) 05/12/17 02:38 MPV 9.2 fl (7.2-11.7) 05/12/17 02:38 Neut % (Auto) 70.3 % (50.0-75.0) 05/12/17 02:38 Lymph % (Auto) 20.3 % (20.0-40.0) 05/12/17 02:38 Clarke % (Auto) 7.8 % (0.0-10.0) 05/12/17 02:38 Eos % (Auto) 1.0 % (0.0-4.0) 05/12/17 02:38 Baso % (Auto) 0.6 % (0.0-2.0) 05/12/17 02:38 Neut # (Auto) 4.2 K/uL (1.8-7.0) 05/12/17 02:38 Lymph # (Auto) 1.2 K/uL (1.0-4.3) 05/12/17 02:38 Clarke # (Auto) 0.5 K/uL (0.0-0.8) 05/12/17 02:38 Eos # (Auto) 0.1 K/uL (0.0-0.7) 05/12/17 02:38 Baso # (Auto) 0.0 K/uL (0.0-0.2) 05/12/17 02:38 Sodium 141 mmol/l (132-148) 05/12/17 02:38 Potassium 4.1 MMOL/L (3.6-5.0) 05/12/17 02:38 Chloride 103 mmol/L (98-107) 05/12/17 02:38 Carbon Dioxide 28 mmol/L (22-30) 05/12/17 02:38 Anion Gap 14 (10-20) 05/12/17 02:38 BUN 11 mg/dl (7-17) 05/12/17 02:38 Creatinine 0.8 mg/dl (0.7-1.2) 05/12/17 02:38 Est GFR ( Amer) > 60 05/12/17 02:38 Est GFR (Non-Af Amer) > 60 05/12/17 02:38 POC Glucose (mg/dL) 108 mg/dL (65-110) 05/12/17 01:55 Random Glucose 120 mg/dL (65-105) H 05/12/17 02:38 Lactic Acid 1.4 MMOL/L (0.7-2.1) 05/12/17 02:38 Calcium 9.2 mg/dL (8.4-10.2) 05/12/17 02:38 Magnesium 2.4 MG/DL (1.6-2.3) H 05/12/17 02:38 Total Bilirubin 0.8 mg/dl (0.2-1.3) 05/12/17 02:38 AST 30 U/L (14-36) 05/12/17 02:38 ALT 34 U/L (9-52) 05/12/17 02:38 Alkaline Phosphatase 83 U/L (38-126) 05/12/17 02:38 Total Creatine Kinase 175 U/L (30-135) H 05/12/17 02:38 Total Protein 7.2 G/DL (6.3-8.2) 05/12/17 02:38 Albumin 4.2 g/dL (3.5-5.0) 05/12/17 02:38 Globulin 3.0 gm/dL (2.2-3.9) 05/12/17 02:38 Albumin/Globulin Ratio 1.4 (1.0-2.1) 05/12/17 02:38 Urine Color Yellow (YELLOW) 05/12/17 03:05 Urine Clarity Slighty-cloudy (Clear) 05/12/17 03:05 Urine pH 6.0 (5.0-8.0) 05/12/17 03:05 Ur Specific [place] 1.016 (1.003-1.030) 05/12/17 03:05 Urine Protein Negative mg/dL (NEGATIVE) 05/12/17 03:05 Urine Glucose (UA) Neg mg/dL (Normal) 05/12/17 03:05 Urine Ketones Negative mg/dL (NEGATIVE) 05/12/17 03:05 Urine Blood Small (NEGATIVE) 05/12/17 03:05 Urine Nitrate Negative (NEGATIVE) 05/12/17 03:05 Urine Bilirubin Negative (NEGATIVE) 05/12/17 03:05 Urine Urobilinogen 0.2-1.0 mg/dL (0.2-1.0) 05/12/17 03:05 Ur Leukocyte Esterase Neg [place]/uL (Negative) 05/12/17 03:05 Urine RBC (Auto) 5 /hpf (0-3) H 05/12/17 03:05 Urine Microscopic WBC 2 /hpf (0-5) 05/12/17 03:05 Ur Squamous Epith Cells < 1 /hpf (0-5) 05/12/17 03:05 Urine Bacteria Rare (<OCC) 05/12/17 03:05 Alcohol, Quantitative < 10 mg/dl (0-10) 05/12/17 02:38 Discharge Exam - Head Exam Head Exam: NORMAL INSPECTION Discharge Plan - Follow Up Plan Condition: IMPROVED Disposition: HOME/ ROUTINE Instructions: Syncope (DC), Epilepsy (DC), Anxiety (DC) Additional Instructions: call for follow up appt in 7-10 days. Referrals: Aj Montalvo MD [Primary Care Provider] - Wali Guo MD [Staff Provider] - Arnie Pacheco MD [Medical Doctor] - Cristine Muñoz MD [Staff Provider] -
== END 2017-05-13 17:50 | disposition home or self-care (01) ==
LOC: H.ER 01:28 → H.ERHOLD 02:39 → H.TEL 11:39
PROVIDERS: ADMIT Internal Medicine; ATTEND Internal Medicine
DX: I95.1 Orthostatic hypotension (principal); F03.90 Unspecified dementia, unspecified severity, without behavioral disturbance, psychotic disturbance, mood disturbance, and anxiety; F41.9 Anxiety disorder, unspecified; K29.70 Gastritis, unspecified, without bleeding
CPT/HCPCS: 70450; 70551; 71045; 72125; 80053; 81003; 82550; 82948; 83605; 83735; 85025; 87086; 93005; 93880; 95816; 99285; G0378; G0480; J2405; J7040